=== PATIENT | male | born 1970 | race American Indian/Alaskan Native ===

== ENCOUNTER 2022-03-23 06:42 | Day surgery (SDC) | payer BC ==
[2022-03-23] MEDS ORDERED: ASPIRIN EC 325 MG TAB PO SCH (07:30)
[2022-03-23 08:23] LABS: Basophils % (Auto) 0.3 % (0.0-1.8); Eosinophils # (Auto) 0.1 K/mm3 (0.0-0.4); Eosinophils % (Auto) 0.6 % (0.0-4.3); Hematocrit 42.9 % (35.5-45.6); Hemoglobin 13.9 gm/dl (11.8-15.2); Lymphocytes % (Auto) 22.6 % (13.4-35.0); Mean Corpuscular HGB Conc 32 % (32-34); Mean Corpuscular Volume 75 fl (84-94); Monocytes # (Auto) 0.5 K/mm3 (0.0-0.8); Monocytes % (Auto) 5.9 % (0.0-7.3); Platelet Count 145 K/mm3 (140-440); Red Blood Count 5.71 M/mm3 (3.65-5.03); Red Cell Distribution Width 14.8 % (13.2-15.2)
[2022-03-23 08:28] LABS: INR 0.95 (0.87-1.13)
[2022-03-23 08:32] LABS: BUN/Creatinine Ratio 20; Blood Urea Nitrogen 18 mg/dL (9-20); Calcium 9.6 mg/dL (8.4-10.2); Hemolysis Index 10
[2022-03-23] MEDS: SODIUM CHLORIDE 0.9% 500 ML 500 ML IV SCH ×2 (09:07→11:17)
[2022-03-23] MEDS ORDERED: HEPARIN 10,000 UNITS/10 ML VIAL ONE (10:58)
[2022-03-23] MEDS: LIDOCAINE (1%) 10 MG/1 ML VIAL 20 ML MDV ONE ×2 (11:05→11:35)
[2022-03-23] MEDS: fentaNYL 100 MCG/2 ML INJ ONE ×2 (11:05→11:34)
[2022-03-23] MEDS: MIDAZOLAM 2 MG/2 ML INJ ONE ×2 (11:05→11:33)
[2022-03-23] MEDS: NITROGLYCERIN SYRINGE 3 ML ONE ×2 (11:17→11:35)
[2022-03-23] MEDS: HEPARIN/NS 5000 UNIT/500ML 1,000 ML IR ONE ×2 (11:18→11:35)
[2022-03-23] MEDS: VERAPAMIL 5 MG/2 ML INJ ONE ×2 (11:20→11:35)
[2022-03-23] MEDS ORDERED: traMADol 50 MG TAB PO PRN (11:59)
[2022-03-23] MEDS ORDERED: SODIUM CHLORIDE 0.9% 1000 ML 1,000 ML IV SCH (12:00)
--- NOTE | 2022-03-23 12:01 | Discharge Summary ---
Short Stay Discharge Plan Activity: advance as tolerated Weight Bearing Status: Full Weight Bearing Diet: low fat, low cholesterol, low salt, diabetic Wound: keep clean and dry Special Instructions: smoking cessation, no heavy lifting (3 days), hold Metformin (48-hours) Follow up with: PRIMARY CARE,MD [Primary Care Provider] - 7 Days DARWIN ROMERO MD [Staff Physician] - 7 Days
--- NOTE | 2022-03-23 13:14 | Cardiac Catherization Report ---
DATE OF SERVICE: 03/23/2022 CARDIAC CATHETERIZATION REPORT REASON FOR PROCEDURE: Abnormal thallium stress test. PROCEDURES: 1. Left heart catheterization. 2. Selective left and right coronary angiography. 3. Left ventricular angiography. 4. Sedation time start 11:33, end 11:47. DESCRIPTION OF PROCEDURE: The patient was prepped and draped in a sterile fashion after informed consent. The right radial cath site was prepped and draped after negative Alfred's test. The right radial artery was entered using Seldinger technique followed by placement of a 6-[place]izen [place] hydrophilic sheath. Routine radial cocktail was administered via the sheath. Selective left and right coronary angiography was performed using a #3.5 left Jonny and a #4 right Jonny. The pigtail catheter was used for left ventricular angiography. The catheters were removed, sheath removed and hemostasis achieved using a TR band. The patient was returned to the postprocedure unit in stable condition. There were no complications. FINDINGS: HEMODYNAMICS: Left ventricular end-diastolic pressure was 10. Ascending aortic pressure 150/90. There was no significant pressure gradient on pullback across the aortic valve. CORONARY ANGIOGRAPHY: Left main coronary artery was free of significant disease. There were mild irregularities of the proximal to mid LAD; otherwise, this vessel and its diagonal branches were free of significant disease. The circumflex artery and its obtuse marginal branches were free of significant disease. The right coronary artery was dominant, contained mild ostial narrowing and mild to moderate ectasia of its proximal and mid segments. The ectasia was associated with mild atherosclerosis with no significant obstructive lesions noted. Left ventricular systolic function was well preserved, with ejection fraction 55%. CONCLUSION: 1. Mild luminal atherosclerosis as described above, no significant obstructive coronary lesions noted. 2. Well preserved left ventricular systolic function, ejection fraction 55%. RECOMMENDATIONS: Risk factor modification and medical therapy. TID: [id number] RECEIPT: [id number] CA/RIS
--- NOTE | 2022-03-23 13:52 | Electrocardiograph Report ---
[facility] Test Date: 2022-03-23 Test Time: 07:44:17 Pat Name: BROOKE MCKINLEY Department: Room: Gender: M [employer]: TERRENCE : 1970 Requested By: JOSE MANUEL GONZALES Order Number: [id number] Reading MD: Jose Manuel Gonzales Measurements Intervals [place] Rate: 77 P: 50 AK: 154 QRS: 23 QRSD: 90 T: 57 QT: 382 QTc: 433 Interpretive Statements Sinus rhythm No previous ECG available for comparison Electronically Signed On 03-23-2022 13:51:42 EDT by Jose Manuel Gonzales
[2022-03-23 15:51] VITALS: BP 135/98
== END 2022-03-23 06:43 | disposition home or self-care (01) ==
LOC: CATHLABREC 06:42
PROVIDERS: ATTEND Internal Medicine Cardiovascular Disease
DX: R94.39 Abnormal result of other cardiovascular function study (principal); R07.9 Chest pain, unspecified; I25.10 Atherosclerotic heart disease of native coronary artery without angina pectoris; I10 Essential (primary) hypertension; E11.9 Type 2 diabetes mellitus without complications; E78.5 Hyperlipidemia, unspecified; Z98.890 Other specified postprocedural states; E66.9 Obesity, unspecified; Z79.899 Other long term (current) drug therapy; Z79.82 Long term (current) use of aspirin; Z68.34 Body mass index [BMI] 34.0-34.9, adult
CPT/HCPCS: 36415; 80048; 85025; 85610; 85730; 93005; 93458; 99156; C1894; J1644; J1815; J2250; J3010; J7040; Q9967